=== PATIENT | female | born 1965 | race Caucasian/White ===

== ENCOUNTER → 2016-08-12 | Outpatient (CLI) | payer OTHER ==
[~2016-08-12] MED LIST: HCTZ PO; ZOCOR PO
--- NOTE | ~2016-08-12 | MY29 ---
[facility] A Service of [facility] RADIOLOGY TEXT RESULTS PATIENT: JERAMIE BARLOW LOCATION: [facility] : 69 UNIT #: [id number] AGE: [address]: Ajay Multani MD SEX: F ORDER DR: [id number] [facility] [address] [place], [place] [address] [id number] O MR#: [id number] Acc #: [id number] NAME: JERAMIE BARLOW : 1965 SEX: F STUDY DATE/TIME: 08/12/2016 7:59 UNIT: [facility] ROOM: STUDY DESCRIPTION: MY ISADORA SCREENING W/ CAD BILAT Attending Physician: Ajay Multani M.D. Referring Physician: Ajay Multani M.D. Ordering Physician: Ajay Multani M.D. Primary Care Physician: Ajay Multani M.D. MEDICAL IMAGING REPORT This report is preliminary unless electronic signature is present EXAM Digital screening mammogram 08/12/2016 HISTORY 51-year-old woman. No risk elevation. Annual screen. COMPARISON Mammograms date to 03/16/2009 with most recent 08/10/2015. FINDINGS Digital imaging of each breast was completed utilizing a two-view examination of each breast in craniocaudal and mediolateral-oblique projections. Review and interpretation of digital mammograms include a second review in conjunction with FDA-approved CAD device. There is a normal parenchymal presentation bilaterally consistent with the patient's age. There are no breast masses imaged and no parenchymal asymmetry is visualized. There are no suspicious microcalcifications and I see no focal architectural disturbance. Breast parenchyma is fatty-replaced. IMPRESSION Negative screening digital mammogram. One-year follow up recommended. Breast parenchyma is fatty-replaced. Patients over the age of 40 are entered into a reminder system with target due date for the next mammogram. A result letter will also be sent to the patient. BIRADS: 1 Negative Dictated by... [facility] A Service [facility] RADIOLOGY TEXT RESULTS PATIENT: JERAMIE BARLOW LOCATION: [facility] : 69 UNIT #: [id number] AGE: [address]: Ajay Multani MD SEX: F ORDER DR: Jean Claude Jameson M.D. THIS IS AN ELECTRONICALLY VERIFIED REPORT Jean Claude Jameson M.D. at 08/12/2016 10:47 AM ARIE/radha TD: 08/12/2016 09:49 JOB #: [id number] MEDICAL IMAGING REPORT Page 1 of 1 COPY
== END | disposition home or self-care (01) ==
LOC: CWCC 07:44
DX: Z12.31 Encounter for screening mammogram for malignant neoplasm of breast (principal); R92.8 Other abnormal and inconclusive findings on diagnostic imaging of breast
CPT/HCPCS: G0202